=== PATIENT | male | born 1965 | race Caucasian/White ===

== ENCOUNTER 2016-12-19 13:18 | Inpatient (IN) | payer MEDICAID, OTHER ==
[~2016-12-19] VITALS: Ht 188 cm; Wt 82.1 kg
[~2016-12-19 13:18] MED LIST: FERR-89 PO; FLUO-191 PO; LISI-660 PO; OLAN7.5T2 PO; OMEP20 PO
[2016-12-19 15:57] VITALS: BP 127/88
[2016-12-19] MEDS ORDERED: PROZ10 PO (17:04)
[2016-12-19 17:53] LABS: APPEARANCE,URINE CLEAR (CLEAR); GLUCOSE, URINE (UA) NEGATIVE (NEGATIVE); KETONES,URINE NEGATIVE (NEGATIVE); LEUKOCYTE ESTERASE ,URINE NEGATIVE (NEGATIVE); OCCULT BLOOD,URINE NEGATIVE (NEGATIVE); PH,URINE 7.5 (5.0-8.0); PROTEIN,URINE POS 1+ (NEGATIVE)
[2016-12-19 18:03] LABS: ADD UA MICROSCOPIC NO
[2016-12-19] MEDS ORDERED: -PHARMACY VACCINE NOTE- MISC ONE ×2 (20:30)
[2016-12-19 21:13] LABS: BASOPHILS % (AUTO) 0.2 % (0.0-2.0); EOSINOPHILS % (AUTO) 0.1 % (1.0-6.0); HEMATOCRIT 36.2 % (41-53); HEMOGLOBIN 11.6 g/dL (13.5-17.5); LYMPHOCYTES # (AUTO) 0.7 K/uL (1.0-4.8); LYMPHOCYTES % (AUTO) 5.2 % (22.0-44.0); MEAN CORPUSCULAR HEMOGLOBIN 25.8 pg (26.0-34.0); MEAN CORPUSCULAR HGB CONC 32.2 G/dL (31.0-37.0); MEAN CORPUSCULAR VOLUME 80 fL (80-100); MONOCYTES % (AUTO) 7.8 % (2.0-9.0); NEUTROPHILS # (AUTO) 11.3 K/uL (1.8-7.7); PLATELET COUNT (AUTO) 171 K/uL (150-450); RED BLOOD CELL COUNT(AUTO) 4.51 MIL/uL (4.50-5.90); RED CELL DISTRIBUTION WIDTH 22.5 % (11.5-14.5)
[2016-12-19] MEDS ORDERED: CefTRIAXone SODIUM 1 GM/VIAL IM ONE (21:15)
[2016-12-19] MEDS ORDERED: LIDOCAINE HCL/PF 1% 2 ML VIAL IM ONE (21:15)
[2016-12-19] MEDS ORDERED: AZITHROMYCIN 250 MG TABLET PO ONE (21:15)
[2016-12-19 21:17] LABS: ANION GAP 6 mmol/L (8-16); CARBON DIOXIDE 27 mmol/L (22-29); CHLORIDE 95 mmol/L (98-107); CREATININE 0.58 mg/dL (0.60-1.30); GLOMERULAR FILTR. RATE CALC > 60 mL/min (>60); NEUTROPHILS % (AUTO) 86.7 % (40.0-70.0); POTASSIUM 4.5 mmol/L (3.5-5.1); SODIUM SERUM 128 mmol/L (136-145); UREA NITROGEN, BLOOD 9 mg/dL (7-18)
[2016-12-19 21:23] LABS: ALANINE AMINOTRANSFERASE 39 U/L (12-78); ALBUMIN 2.6 g/dL (3.4-5.0); ASPARTATE AMINOTRANSFERASE 29 U/L (15-37); BILIRUBIN,TOTAL 1.2 mg/dL (0.1-1.0); TOTAL PROTEIN, SERUM 8.1 g/dL (6.4-8.2)
[2016-12-19 21:53] LABS: RBC MORPHOLOGY COMMENT ABNORMAL RBC MORPH
[2016-12-19] MEDS ORDERED: HYDROCODONE/ACETAMINOPHEN 5-325 MG TABLET PO ONE (22:00)
[2016-12-19] MEDS ORDERED: SODIUM CHLORIDE 0.9% 1,000 ML IV ONE (22:00)
[2016-12-19] MEDS ORDERED: KETOROLAC TROMETHAMINE 30 MG/ML VIAL IVP ONE (22:30)
[2016-12-19] MEDS ORDERED: ACETAMINOPHEN 325 MG TABLET PO ONE (22:30)
[2016-12-19] MEDS ORDERED: SODIUM CHLORIDE 1 GM TABLET PO ONE (22:30)
[2016-12-20] MEDS ORDERED: ZOLPIDEM TARTRATE 10 MG TABLET PO PRN (02:00)
[2016-12-20] MEDS ORDERED: LORazepam 2 MG TABLET PO PRN (02:00)
[2016-12-20 02:05] VITALS: BP 123/63
[2016-12-20] MEDS: FLUoxetine HCL 10 MG CAPSULE PO SCH (10:30)
[2016-12-20 12:12] VITALS: BP 151/76
[2016-12-20] MEDS: TraMADol HCL 50 MG TABLET PO PRN (12:12)
[2016-12-20] MEDS ORDERED: TraMADol HCL 50 MG TABLET ONE (12:13)
[2016-12-20] MEDS: HYDROCODONE/ACETAMINOPHEN 5-325 MG TABLET PO PRN ×2 (14:29→23:50)
[2016-12-20 16:27] VITALS: BP 157/88
[2016-12-20] MEDS ORDERED: ALBUTEROL SULFATE HFA 90 MCG/PUFF 8 GM INHALER IH PRN (17:15)
[2016-12-20] MEDS ORDERED: BENZOCAINE/MENTHOL LOZENGE MM PRN (17:15)
[2016-12-20] MEDS ORDERED: MAGNESIUM HYDROXIDE SUSPENSION 30 ML UDCUP PO PRN (17:15)
[2016-12-20] MEDS: CEPHALEXIN MONOHYDRATE 500 MG CAPSULE PO SCH (17:19)
[2016-12-20] MEDS ORDERED: BENZOCAINE/MENTHOL LOZENGE [8 LOZENGES/PACKET] MM PRN (17:30)
[2016-12-20] MEDS: OLANZapine 7.5 MG TABLET PO SCH (20:46)
[2016-12-20 23:48] VITALS: BP 145/82
[2016-12-21 09:13] VITALS: BP 128/70
[2016-12-21] MEDS: FLUoxetine HCL 10 MG CAPSULE PO SCH (09:16)
[2016-12-21] MEDS: CEPHALEXIN MONOHYDRATE 500 MG CAPSULE PO SCH ×3 (09:16→17:48)
[2016-12-21] MEDS: HYDROCODONE/ACETAMINOPHEN 5-325 MG TABLET PO PRN (09:16)
[2016-12-21 16:37] VITALS: BP 138/57
[2016-12-21] MEDS: OLANZapine 7.5 MG TABLET PO SCH (21:32)
[2016-12-21] MEDS: MAG HYDROX/AL HYDROX/SIMETH ES 30 ML SUSPENSION UDCUP PO PRN (21:46)
[2016-12-22 06:49] VITALS: BP 129/83
[2016-12-22] MEDS: TraMADol HCL 50 MG TABLET PO PRN (06:50)
[2016-12-22 08:20] VITALS: BP 131/62
[2016-12-22] MEDS: FLUoxetine HCL 10 MG CAPSULE PO SCH (09:45)
[2016-12-22] MEDS: CEPHALEXIN MONOHYDRATE 500 MG CAPSULE PO SCH ×3 (09:45→16:30)
[2016-12-22 16:59] VITALS: BP 121/78
[2016-12-22] MEDS: OLANZapine 7.5 MG TABLET PO SCH (20:00)
[2016-12-23] MEDS: TraMADol HCL 50 MG TABLET PO PRN ×2 (02:38→16:39)
[2016-12-23] MEDS: CEPHALEXIN MONOHYDRATE 500 MG CAPSULE PO SCH ×3 (09:21→16:39)
[2016-12-23] MEDS: FLUoxetine HCL 10 MG CAPSULE PO SCH (09:22)
[2016-12-23 09:26] VITALS: BP 146/82
[2016-12-23] MEDS: HYDROCODONE/ACETAMINOPHEN 5-325 MG TABLET PO PRN (09:28)
[2016-12-23 16:39] VITALS: BP 134/76
[2016-12-23] MEDS: OLANZapine 7.5 MG TABLET PO SCH (21:02)
[2016-12-24 02:50] VITALS: BP 149/76
[2016-12-24] MEDS: HYDROCODONE/ACETAMINOPHEN 5-325 MG TABLET PO PRN ×2 (02:52→09:24)
[2016-12-24 09:21] VITALS: BP 147/81
[2016-12-24] MEDS: FLUoxetine HCL 10 MG CAPSULE PO SCH (09:24)
[2016-12-24] MEDS: CEPHALEXIN MONOHYDRATE 500 MG CAPSULE PO SCH ×3 (09:24→16:15)
[2016-12-24 16:15] VITALS: BP 133/70
[2016-12-24] MEDS: TraMADol HCL 50 MG TABLET PO PRN ×2 (16:15→22:40)
[2016-12-24] MEDS: OLANZapine 7.5 MG TABLET PO SCH (20:20)
[2016-12-24 22:40] VITALS: BP 105/72
[2016-12-25] MEDS: HYDROCODONE/ACETAMINOPHEN 5-325 MG TABLET PO PRN ×2 (00:10→21:12)
[2016-12-25 00:11] VITALS: BP 119/68
[2016-12-25 08:30] VITALS: BP 143/75
[2016-12-25] MEDS: FLUoxetine HCL 10 MG CAPSULE PO SCH (09:55)
[2016-12-25] MEDS: CEPHALEXIN MONOHYDRATE 500 MG CAPSULE PO SCH ×3 (09:55→17:08)
[2016-12-25] MEDS: DOCUSATE SODIUM 250 MG CAPSULE PO SCH ×2 (12:21→17:08)
[2016-12-25 16:25] VITALS: BP 130/74
[2016-12-25 21:11] VITALS: BP 134/79
[2016-12-25] MEDS: OLANZapine 7.5 MG TABLET PO SCH (21:11)
[2016-12-25 22:11] VITALS: BP 128/81
[2016-12-26] VITALS (7 sets, daily range): BP systolic 118–184; BP diastolic 69–92
[2016-12-26 08:20] LABS: APPEARANCE,URINE CLEAR (CLEAR); GLUCOSE, URINE (UA) NEGATIVE (NEGATIVE); KETONES,URINE NEGATIVE (NEGATIVE); LEUKOCYTE ESTERASE ,URINE NEGATIVE (NEGATIVE); OCCULT BLOOD,URINE NEGATIVE (NEGATIVE); PH,URINE 6.5 (5.0-8.0); PROTEIN,URINE NEGATIVE (NEGATIVE)
[2016-12-26 08:36] LABS: ADD UA MICROSCOPIC NO
[2016-12-26] MEDS: CEPHALEXIN MONOHYDRATE 500 MG CAPSULE PO SCH ×3 (09:14→16:28)
[2016-12-26] MEDS: FLUoxetine HCL 10 MG CAPSULE PO SCH (09:14)
[2016-12-26] MEDS: HYDROCODONE/ACETAMINOPHEN 5-325 MG TABLET PO PRN ×2 (09:14→16:28)
[2016-12-26] MEDS: DOCUSATE SODIUM 250 MG CAPSULE PO SCH ×2 (09:16→16:28)
[2016-12-26] MEDS: MAG HYDROX/AL HYDROX/SIMETH ES 30 ML SUSPENSION UDCUP PO PRN (13:36)
[2016-12-26] MEDS ORDERED: CloNIDine HCL 0.1 MG TABLET PO PRN (18:45)
[2016-12-26] MEDS: OLANZapine 7.5 MG TABLET PO SCH (20:24)
[2016-12-26] MEDS: TraMADol HCL 50 MG TABLET PO PRN (23:56)
[2016-12-27] MEDS ORDERED: OMEPRAZOLE 20 MG CAPSULE PO SCH (07:00)
[2016-12-27 08:01] VITALS: BP 148/79
[2016-12-27] MEDS ORDERED: LISINOPRIL 5 MG TABLET PO SCH (09:00)
[2016-12-27] MEDS: DOCUSATE SODIUM 250 MG CAPSULE PO SCH (09:55)
[2016-12-27] MEDS: CEPHALEXIN MONOHYDRATE 500 MG CAPSULE PO SCH ×2 (09:55→12:13)
[2016-12-27] MEDS: FLUoxetine HCL 10 MG CAPSULE PO SCH (09:56)
[2016-12-27] MEDS ORDERED: CEPH500 PO (11:59)
[2016-12-27] MEDS ORDERED: DOCU250C91 PO (11:59)
[2016-12-28 06:16] LABS: GC DNA N.A. AMPLIFY Negative (Negative)
== END 2016-12-27 14:45 | disposition home or self-care (01) | DRG 750 ==
LOC: EDSTATUS 13:18 → BV PSY EVL 14:36 → 3EI 19:09
DX: F25.1 Schizoaffective disorder, depressive type (principal); R45.851 Suicidal ideations; E87.1 Hypo-osmolality and hyponatremia; E55.9 Vitamin D deficiency, unspecified; E11.9 Type 2 diabetes mellitus without complications; I10 Essential (primary) hypertension; D50.9 Iron deficiency anemia, unspecified; F17.210 Nicotine dependence, cigarettes, uncomplicated; F12.90 Cannabis use, unspecified, uncomplicated; K21.9 Gastro-esophageal reflux disease without esophagitis; J44.9 Chronic obstructive pulmonary disease, unspecified; M19.90 Unspecified osteoarthritis, unspecified site; G47.00 Insomnia, unspecified; K59.00 Constipation, unspecified; M54.5 Low back pain; N50.812 Left testicular pain; G89.29 Other chronic pain; N50.811 Right testicular pain; B18.2 Chronic viral hepatitis C; Z98.890 Other specified postprocedural states; Z72.89 Other problems related to lifestyle; Z71.41 Alcohol abuse counseling and surveillance of alcoholic; Z71.51 Drug abuse counseling and surveillance of drug abuser; Z79.899 Other long term (current) drug therapy; Z59.0 Homelessness; Z87.81 Personal history of (healed) traumatic fracture
CPT/HCPCS: 76870; 80307; 87491; 87591; 96361; 96372; 96374; 99285; 99406; J0696; J1885; J3490; J3535; J7030